=== PATIENT | female | born 1930 | race Caucasian/White ===

== ENCOUNTER → 2019-04-16 | Outpatient (CLI) | payer MEDICARE, OTHER ==
[~2019-04-16] MED LIST: ASPI81CH PO; CARV3.125 PO; DOCU100 PO; FURO40 PO; HORMONE PO; LISI5 PO; METPRE4DP PO; PRAV20 PO; Percocet 5-3251 EACH PO; ROXICODONE5 MG PO; SPIR25 PO; TRIAMTERENE PO; TRIHYD253A PO; WARF2 PO
[2019-04-16 15:53] LABS: Albumin, Blood 3.8 g/dL (3.4-5.0); Anion Gap 4 mmol/L (6-16); Blood Urea Nitrogen 40 mg/dL (8-24); Bun/Creatinine Ratio 29.2 (12.0-20.0); CO2, Blood 27 mmol/L (21-32); Calcium, Blood 9.8 mg/dL (8.5-10.1); Chloride, Blood 108 mmol/L (98-108); Creatinine, Blood 1.37 mg/dL (0.40-1.00); Glomerular Filtration Rate 39 (60-); Glucose, Blood 86 mg/dL (70-99); Phosphorus, Blood 3.8 mg/dL (2.5-4.9); Potassium, Blood 4.6 mmol/L (3.5-5.5); Sodium, Blood 139 mmol/L (136-145)
== END ==
LOC: LAB 13:55 → LAB SHORT 13:55
PROVIDERS: Internal Medicine Nephrology
DX: N18.3 Chronic kidney disease, stage 3 (moderate) (principal); D63.1 Anemia in chronic kidney disease
CPT/HCPCS: 80069; 85018